=== PATIENT | male | born 1955 | race Caucasian/White ===

== ENCOUNTER 2018-10-11 01:24 | Inpatient (IN) | payer BC ==
[~2018-10-11] VITALS: Ht 167.6 cm; Wt 63.6 kg
[~2018-10-11 01:24] MED LIST: ACET325 PO; AMOCLA500 PO; ASPI81CH; Augmentin 875-1 EACH PO; CALCIUM + D3 E1 EACH PO; CLOP75 PO; CRANBERRY250 MG PO; DIOVAN PO; FURO20 PO; HYDACE5 PO; LEVSOD125 PO; LISI5 PO; METO25ER; METO25ER PO; NAPR550 PO; OLME20; OXYC10TA19 PO; POTCHL10ER PO; POTCHL20ER; SIMV40 PO; THYROXINE PO; VENL75ER; VENL75ER PO; WARF4 PO
[2018-10-11] MEDS ORDERED: METO25ER PO (02:07)
[2018-10-11] MEDS ORDERED: LISI5 PO (02:07)
[2018-10-11] MEDS ORDERED: LISI5 (02:07)
[2018-10-11 02:19] LABS: BASOPHILS ABSOLUTE AUTO 0.02 K/mm3 (0.00-0.23); BASOPHILS PERCENT AUTO 0 % (0-2); EOSINOPHILS ABSOLUTE AUTO 0.06 K/mm3 (0.00-0.68); EOSINOPHILS PERCENT AUTO 1 % (0-6); Hematocrit 41.7 % (37.0-53.0); Hemoglobin 13.6 g/dL (13.5-17.5); IMMATURE GRAN ABSOLUTE AUTO 0.03 K/mm3 (0.00-0.10); IMMATURE GRAN PERCENT AUTO 0 % (0-1); LYMPHOCYTES ABSOLUTE AUTO 1.11 K/mm3 (0.84-5.20); LYMPHOCYTES PERCENT AUTO 14 % (21-46); MONOCYTES ABSOLUTE AUTO 0.93 K/mm3 (0.16-1.47); MONOCYTES PERCENT AUTO 12 % (4-13); Mean Corpuscular HGB 31.8 pg (26.0-34.0); Mean Corpuscular HGB Conc 32.6 g/dL (31.5-36.5); Mean Corpuscular Volume 97 fL (80-100); Mean Platelet Volume 11.2 fL (9.1-12.4); NEUTROPHILS ABSOLUTE AUTO 5.86 K/mm3 (1.96-9.15); NEUTROPHILS PERCENT AUTO 73 % (41-73); Platelet Count 169 K/mm3 (150-400); RDW Coefficient Variation 13.4 % (11.7-14.2); RDW Standard Deviation 48.2 fL (35.1-46.3); Red Blood Cell Count 4.28 M/mm3 (4.30-5.90); White Blood Cell Count 8.01 K/mm3 (4.00-11.30)
[2018-10-11 02:37] LABS: Alanine Aminotransfer (ALT/SGP 20 U/L (12-78); Albumin, Blood 3.4 g/dL (3.4-5.0); Albumin/Globulin Ratio 0.9 (0.8-1.8); Alk Phos 74 U/L (50-136); Anion Gap 9 mmol/L (6-16); Aspartate Aminotrans (AST/SGOT 16 U/L (12-37); Bilirubin, Total 0.5 mg/dL (0.1-1.0); Blood Urea Nitrogen 12 mg/dL (8-24); Bun/Creatinine Ratio 19.3 (12.0-20.0); CO2, Blood 24 mmol/L (21-32); Calcium, Blood 7.2 mg/dL (8.5-10.1); Chloride, Blood 106 mmol/L (98-108); Creatinine, Blood 0.62 mg/dL (0.60-1.20); Globulin, Blood 3.6 g/dL (2.2-4.0); Glomerular Filtration Rate >60 (60-); Glucose, Blood 90 mg/dL (70-99); Potassium, Blood 3.5 mmol/L (3.5-5.5); Sodium, Blood 139 mmol/L (136-145); Troponin I <0.015 ng/mL (0.000-0.040)
[2018-10-11 04:29] LABS: Influenza A Positive (NEGATIVE); Influenza B Negative (NEGATIVE)
[2018-10-11] MEDS ORDERED: LEVSOD100 PO (14:30)
--- NOTE | 2018-10-11 19:22 | NUR ---
Shift Summary Pt admitted to the PCU at approx 1415 from ED. Hypertensive at that time which was resolved with meds per emar. VSS now. Pt was also febrile which was reduced with tylenol. Pt repostions self. Calls appropriately. Denies any pain. See shift assessment for detailed assessment. Consults called shortly after pt arrived. Oncology and pulminology have not seen pt at this time. Pt denies any SOB currently at rest. On RA. Discussed w/Dr. Koo possibly needing to draw blood cultures, but she was not concerned about sepsis at this time. Pt has not experienced hemoptysis since arriving to PCU. Pt currently resting in bed with call light within reach. Denies any further questions, complaints or requests at this time. Report given to aliyah REEVES.
--- NOTE | 2018-10-11 22:46 | NUR ---
ASSUMED CARE OF PATIENT AT APPROXIMATELY 1915 FROM KRYSTIN Sherman RN. PATIENT ALERT AND ORIENTED X4. PATIENT REPORTS HE FEELS BETTER COMPARED TO WHEN HE WAS ADMITTED. WEAKNESS NOTED IN LEGS. SBA TO BATHROOM; PATIENT HAS BEEN SLEEPING MOST OF THE TIME SINCE SHIFT CHANGE. PATIENT DENIES PAIN, NUMBNESS, TINGLING, DIZZINESS, LIGHTHEADENESS AND NAUSEA. NSR ON TELE; OXYGEN SATURATION ABOVE 90% ON ROOM AIR. PATIENT WAS HYPERTENSIVE UPON TRANSFER TO PCU; BP STABLE AT SHIFT CHANGE. PIV S/L. PATIENT CURRENTLY SLEEPING IN BED; CALL LIGHT IN REACH; BED IN LOWEST POSISTIN; BED ALARM ON; WILL CONTINUE TO MONITOR AND ASSESS UNTIL END OF SHIFT.
[2018-10-11 23:48] LABS: Adenovirus Not Detected (NOT DETECT); Bordetella pertussis Not Detected (NOT DETECT); Chlamydophila pneumoniae Not Detected (NOT DETECT); Coronavirus 229E Not Detected (NOT DETECT); Coronavirus HKU1 Not Detected (NOT DETECT); Coronavirus NL63 Not Detected (NOT DETECT); Coronavirus OC43 Not Detected (NOT DETECT); Human Metapneumovirus Not Detected (NOT DETECT); Human Rhinovirus/Enterovirus Not Detected (NOT DETECT); Influenza A/H1 Not Detected (NOT DETECT); Influenza A/H3 Not Detected (NOT DETECT); Influenza B Not Detected (NOT DETECT); Mycoplasma pneumoniae Not Detected (NOT DETECT); Parainfluenza Virus 1 Not Detected (NOT DETECT); Parainfluenza Virus 2 Not Detected (NOT DETECT); Parainfluenza Virus 3 Not Detected (NOT DETECT); Parainfluenza Virus 4 Not Detected (NOT DETECT); Respiratory Syncytial Virus Not Detected (NOT DETECT)
[2018-10-12 01:14] LABS: Influenza A Not Detected (NOT DETECT); Influenza A/2009-H1 Detected (NOT DETECT)
[2018-10-12 04:14] LABS: Hematocrit 41.3 % (37.0-53.0); Hemoglobin 13.7 g/dL (13.5-17.5); Mean Corpuscular HGB 31.2 pg (26.0-34.0); Mean Corpuscular HGB Conc 33.2 g/dL (31.5-36.5); Platelet Count 172 K/mm3 (150-400); RDW Coefficient Variation 13.2 % (11.7-14.2); RDW Standard Deviation 45.9 fL (35.1-46.3); Red Blood Cell Count 4.39 M/mm3 (4.30-5.90); White Blood Cell Count 4.75 K/mm3 (4.00-11.30)
[2018-10-12 04:16] LABS: Mean Corpuscular Volume 94 fL (80-100)
[2018-10-12 04:51] LABS: Alanine Aminotransfer (ALT/SGP 16 U/L (12-78); Albumin, Blood 2.9 g/dL (3.4-5.0); Albumin/Globulin Ratio 0.8 (0.8-1.8); Alk Phos 64 U/L (50-136); Anion Gap 8 mmol/L (6-16); Aspartate Aminotrans (AST/SGOT 12 U/L (12-37); Bilirubin, Total 0.7 mg/dL (0.1-1.0); Blood Urea Nitrogen 9 mg/dL (8-24); Bun/Creatinine Ratio 18.5 (12.0-20.0); CO2, Blood 27 mmol/L (21-32); Calcium, Blood 7.1 mg/dL (8.5-10.1); Chloride, Blood 104 mmol/L (98-108); Creatinine, Blood 0.49 mg/dL (0.60-1.20); Globulin, Blood 3.6 g/dL (2.2-4.0); Glomerular Filtration Rate >60 (60-); Glucose, Blood 99 mg/dL (70-99); Potassium, Blood 3.4 mmol/L (3.5-5.5); Sodium, Blood 139 mmol/L (136-145); Total Protein, Blood 6.5 g/dL (6.4-8.2)
--- NOTE | 2018-10-12 06:16 | NUR ---
NO ACUTE CHANGES TO REPORT. PATIENT SLEPT ABOUT NINE HOURS LAST NIGHT. VSS. WILL CONTINUE TO MONITOR AND ASSESS UNTIL END OF SHIFT.
--- NOTE | 2018-10-12 14:55 | NUR ---
PERMISSION TO PROVIDE CARE PERMISSION WAS GIVEN TO ME BY PATIENT TO PROVIDE CARE ON 10/13/18
--- NOTE | 2018-10-12 19:47 | NUR ---
SUMM- PT A/O. LUNGS COARSE SCATTERED. STRONG PRODUCTIVE COUGH- RUST SPUTUM, CLEAR THIS EVENING. TELE SR 70'S. BP ELEVATED THIS AM AND CAME DOWN AFTER PO MEDS. AGAIN ELEVATED 1700, MEDICATED WITH IV HYDRALAZINE AND CAME DOWN 140/90'S. NOTIFIED DR DE LA CRUZ OF BP ELEVATION. INCREASESD AM BP MED. PRN HYDRALAZINE AVAILABLE TONIGHT SHOULD BP BECOME ELEVATED AGAIN. PT STATES HE IS FEELING BETTER. HAS BEEN AMBULATING AROUND IN THE ROOM. PLAN FOR BX SAT OR . PT AND RN AWARE OF NPO AFTER MN ORDER. GAVE REPORT TO NOC RN.
[2018-10-13 04:29] LABS: International Normalized Ratio 0.97
--- NOTE | 2018-10-13 06:16 | NUR ---
NO ACUTE CHANGES TO REPORT. PATIENT SLEPT ABOUT EIGHT TO NINE HOURS. VSS. WILL CONTINUE TO MONITOR AND ASSESS UNTIL END OF SHIFT.
--- NOTE | 2018-10-13 10:03 | NUR ---
Pt was laying in bed and open to PC visit. Pt verbalizes his health status. Pt has support from spouse and some lay people from his orthodoxy provided sacrament this morning. Pt is active in his conrado and attends the [facility]. Theological discussion follow in which pt engages well. Pt expresses his beliefs concerning his illness and states he is ready if it's time for him to go. Verbal prayer was offered on the pt's behalf. Pt voiced gratitude for the interventions. I will remain available.
--- NOTE | 2018-10-13 10:21 | NUR ---
Call from imaging to confirm time of CT guided biopsy-time is set tentatively for 11 am.
--- NOTE | 2018-10-13 12:17 | NUR ---
Call to Pharmacy regarding lovenox order scheduled to start tomorrow at 2 pm; also have written order post lung biopsy for blood thinners to be held for 48 hours starting today. Spoke with pharmacist Yudi at this time.
--- NOTE | 2018-10-13 12:52 | NUR ---
INTERLOCKING INSTALLER NOTE TODAY I HAD THE PLEASURE OF WORKING WITH MR. FORREST. THIS MORNING WE DISCUSSED HIS DIAGNOSIS AND BEGAN WITH TAKING VITALS. THE PATIENT NOTED THAT "IT IS WHAT IT IS" IN REGARD TO HIS DIAGNOSIS. HIS BLOOD PRESSURE WAS ELEVATED WAS HIS HR AND TEMPERATURE. THE PATIENT HAD BEEN NPO SINCE MIDNIGHT LAST NIGHT IN PREPERATION FOR A BIOPSY PROCEDURE. A RESULT HE WAS ONLY GIVEN HIS THYROID MEDICATION, ZESTRIL, METOPROLOL AND TAMIFLU. FOLLOWING MED PASS THE PATIENT WAS OFFERED A WARM RAG TO WASH, BY HIS RN, ROMMEL. HE WASHED HIMSELF WITH SOME HELP FROM ME AND WAS GIVEN A FRESH GOWN WELL BRUSHING HIS TEETH. FOLLOWING THIS I COMPLETED HIS ASSESSMENT WHICH WAS REVIEWED BY ROMMEL REEVES. AT 1100 THE PATIENT WAS TRANSPORTED TO IMAGING FOR THE CT GUIDED BIOPSY PROCEDURE. I WAS GIVEN APPROVAL TO ATTEND. THE PATIENT TOLERATED THE PROCEDURE WELL FROM WHAT I SAW IN THE COCKPIT. HE STAYED CALM AND STILL. UPON RETURNING TO THE PATIENTS ROOM HE WAS GIVEN LUNCH AND ORDERS WERE REVIEWED TO COMPLETE VITALS EVERY 15 MIN FOR 4 TIMES AND EVERY 30 MIN FOR 2 TIMES. AT 1245 I LET THE PATIENT RELAX AND LET HIM KNOW I WOULD BE BACK IN 30 MIN TO COMPLETE ANOTHER ROUND OF VITALS. CIELO REEVES HAS BEEN NOTIFIED REGARDING THE LAST SET, DUE AT 1345 FOR WHICH I WILL NOT BE HERE FOR. \\
[2018-10-13] MEDS ORDERED: OSEL75CA PO (17:03)
[2018-10-16 10:09] LABS: ANTI-THYROGLOBULIN ANTIBODIES <1.0 IU/mL (.); THYROGLOBULIN (ICMA) 972.5 ng/mL (.)
== END 2018-10-13 18:16 | disposition home or self-care (01) | DRG 194 ==
LOC: ER 01:24 → PCU 05:33 → EOR 05:33 → ERHOLD 05:34 → PCU 14:06
PROVIDERS: Emergency Medicine; Internal Medicine Hematology & Oncology; Internal Medicine Pulmonary Disease; ADMIT Internal Medicine
PROC: 0BBJ3ZX Excision of Left Lower Lung Lobe, Percutaneous Approach, Diagnostic (ICD-10-PCS; principal; 2018-10-13)
DX: J10.00 Influenza due to other identified influenza virus with unspecified type of pneumonia (principal); C78.00 Secondary malignant neoplasm of unspecified lung; Z87.891 Personal history of nicotine dependence; E89.0 Postprocedural hypothyroidism; I25.10 Atherosclerotic heart disease of native coronary artery without angina pectoris; Z85.850 Personal history of malignant neoplasm of thyroid; Z90.49 Acquired absence of other specified parts of digestive tract; I10 Essential (primary) hypertension; E87.6 Hypokalemia
CPT/HCPCS: 32405; 36415; 71046; 71260; 74176; 77012; 80053; 84432; 84443; 84484; 85025; 85027; 85610; 86800; 86850; 86900; 86901; 87070; 87205; 87486; 87581; 87633; 87798; 87804; 88305; 88342; 93005; 93010; 96361; 96365; 96367; 99285-25; J0360; J0692; J3370; J7030; Q9967

== ENCOUNTER 2019-01-28 00:11 | Day surgery (SDC) | payer BC ==
[~2019-01-28 00:11] MED LIST changes: +LEVSOD100 PO; +LISI5; +OSEL75CA PO
--- NOTE | 2019-01-28 10:12 | NUR ---
WAITED 15 MINUTES AFTER INJECTION WITH NO PROBLEMS.
[2019-01-28] MEDS ORDERED: NAPR220 PO (10:19)
[2019-01-28] MEDS ORDERED: LO-DOSE ASPIRIN81 MG PO (10:19)
[2019-01-28] MEDS ORDERED: LEVSOD150 PO (10:20)
[2019-01-28] MEDS ORDERED: ESCI10 PO (10:20)
[2019-01-28] MEDS ORDERED: METO25ER PO (10:21)
== END 2019-01-28 09:42 | disposition home or self-care (01) ==
LOC: ATC 00:11
DX: C73 Malignant neoplasm of thyroid gland (principal); C34.31 Malignant neoplasm of lower lobe, right bronchus or lung; C79.51 Secondary malignant neoplasm of bone; C77.1 Secondary and unspecified malignant neoplasm of intrathoracic lymph nodes; E89.0 Postprocedural hypothyroidism; D64.81 Anemia due to antineoplastic chemotherapy; I11.0 Hypertensive heart disease with heart failure; I50.9 Heart failure, unspecified; F41.9 Anxiety disorder, unspecified; F32.9 Major depressive disorder, single episode, unspecified; Z79.899 Other long term (current) drug therapy; Z79.82 Long term (current) use of aspirin; Z87.891 Personal history of nicotine dependence
CPT/HCPCS: 96372; J3240

== ENCOUNTER 2019-01-29 00:19 | Day surgery (SDC) | payer BC ==
[~2019-01-29 00:19] MED LIST changes: +ESCI10 PO; +LEVSOD150 PO; +LO-DOSE ASPIRIN81 MG PO; +NAPR220 PO
== END 2019-01-29 09:51 | disposition home or self-care (01) ==
LOC: ATC 00:19
DX: C73 Malignant neoplasm of thyroid gland (principal); E89.0 Postprocedural hypothyroidism; I10 Essential (primary) hypertension; F41.9 Anxiety disorder, unspecified; F32.9 Major depressive disorder, single episode, unspecified; Z79.899 Other long term (current) drug therapy; Z79.82 Long term (current) use of aspirin; Z87.891 Personal history of nicotine dependence
CPT/HCPCS: 96372; J3240

== ENCOUNTER 2019-02-03 00:26 | Day surgery (SDC) | payer BC | END 2019-02-03 09:45 | disposition home or self-care (01) | LOC: ATC 00:26 | DX: C73 Malignant neoplasm of thyroid gland (principal); E89.0 Postprocedural hypothyroidism; Z87.891 Personal history of nicotine dependence; Z79.899 Other long term (current) drug therapy; Z79.82 Long term (current) use of aspirin | CPT/HCPCS: 96372; J3240 ==

== ENCOUNTER 2019-02-04 00:02 | Day surgery (SDC) | payer BC | END 2019-02-04 09:49 | disposition home or self-care (01) | LOC: ATC 00:02 | DX: C73 Malignant neoplasm of thyroid gland (principal); E89.0 Postprocedural hypothyroidism; I10 Essential (primary) hypertension; F41.9 Anxiety disorder, unspecified; F32.9 Major depressive disorder, single episode, unspecified; Z79.899 Other long term (current) drug therapy; Z79.82 Long term (current) use of aspirin; Z87.891 Personal history of nicotine dependence | CPT/HCPCS: 96372; J3240 ==

== ENCOUNTER 2023-01-07 08:25 | Day surgery (SDC) | payer OTHER, BC ==
[~2023-01-07] VITALS: Ht 167.6 cm; Wt 60.8 kg
[~2023-01-07 08:25] MED LIST changes: +AZOR 10-40 MG1 EACH; +EUTHYROX125 MCG PO; +HYDCHL25 PO
[2023-01-07] MEDS ORDERED: MULTI-VITAMIN1 EAC2 (08:47)
[2023-01-07] MEDS ORDERED: B-12 COMPL1000 MCG/2 (08:49)
[2023-01-07] MEDS ORDERED: VITAMIN D5000 UNIT (08:49)
--- NOTE | 2023-01-07 11:18 | NUR ---
01/07/23 1118 LACEY FRANCO #1 COAG 25 (PER LALA JENNINGS IN MY CHART)
== END 2023-01-07 11:00 | disposition home or self-care (01) ==
LOC: ORSCSDS 08:25
PROVIDERS: Internal Medicine Gastroenterology
PROC: 0DBP8ZX Excision of Rectum, Via Natural or Artificial Opening Endoscopic, Diagnostic (ICD-10-PCS; principal; 2023-01-07 09:45)
PROC: 0DBM8ZX Excision of Descending Colon, Via Natural or Artificial Opening Endoscopic, Diagnostic (ICD-10-PCS; principal; 2023-01-07 09:45)
DX: K62.5 Hemorrhage of anus and rectum (principal); Z86.010 Personal history of colon polyps; D12.4 Benign neoplasm of descending colon; K62.7 Radiation proctitis; K62.6 Ulcer of anus and rectum; K57.30 Diverticulosis of large intestine without perforation or abscess without bleeding; Z79.899 Other long term (current) drug therapy
CPT/HCPCS: 88305; J2704; J7120

== ENCOUNTER → 2024-10-19 | Outpatient (CLI) | payer OTHER, BC ==
[~2024-10-19] MED LIST changes: +B-12 COMPL1000 MCG/2; +MULTI-VITAMIN1 EAC2; +VITAMIN D5000 UNIT
== END ==
LOC: LAB 15:26 → LAB SHORT 15:26
DX: C44.41 Basal cell carcinoma of skin of scalp and neck (principal)
CPT/HCPCS: 88305

== ENCOUNTER 2024-11-02 02:32 | Inpatient (IN) | payer OTHER, BC ==
[~2024-11-02] VITALS: Ht 165.1 cm; Wt 63.3 kg
[~2024-11-02 02:32] MED LIST changes: +ASPIR 8181 M1 PO; -B-12 COMPL1000 MCG/2; +B-12500 MC2; -LO-DOSE ASPIRIN81 MG PO; -MULTI-VITAMIN1 EAC2; +MULTI-VITAMIN1 EAC2 PO; -VITAMIN D5000 UNIT; +VITAMIN D5000 UNIT PO
[2024-11-02 04:06] LABS: Source, Urine Clean Catch
[2024-11-02 04:11] LABS: BASOPHILS ABSOLUTE AUTO 0.03 K/mm3 (0.00-0.23); BASOPHILS PERCENT AUTO 1 % (0-2); EOSINOPHILS ABSOLUTE AUTO 0.22 K/mm3 (0.00-0.68); EOSINOPHILS PERCENT AUTO 3 % (0-6); Hematocrit 45.5 % (37.0-53.0); IMMATURE GRAN ABSOLUTE AUTO 0.02 K/mm3 (0.00-0.10); IMMATURE GRAN PERCENT AUTO 0 % (0-1); LYMPHOCYTES ABSOLUTE AUTO 1.07 K/mm3 (0.84-5.20); LYMPHOCYTES PERCENT AUTO 16 % (21-46); MONOCYTES ABSOLUTE AUTO 0.53 K/mm3 (0.16-1.47); MONOCYTES PERCENT AUTO 8 % (4-13); Mean Corpuscular HGB 31.3 pg (26.0-34.0); Mean Corpuscular Volume 95 fL (80-100); Mean Platelet Volume 10.6 fL (9.1-12.4); NEUTROPHILS ABSOLUTE AUTO 4.64 K/mm3 (1.96-9.15); NEUTROPHILS PERCENT AUTO 71 % (41-73); Platelet Count 216 K/mm3 (150-400); RDW Coefficient Variation 12.8 % (11.7-14.2); RDW Standard Deviation 45.2 fL (35.1-46.3); Red Blood Cell Count 4.79 M/mm3 (4.30-5.90); White Blood Cell Count 6.51 K/mm3 (4.00-11.30)
[2024-11-02 04:12] LABS: Bilirubin, Urine Neg (Neg); Blood, Urine 5+ (Neg); Glucose Qualitative, Urine Neg (Neg); Ketones, Urine Neg (Neg); Leukocyte Esterase, Urine 1+ (Neg); Nitrite, Urine Neg (Neg); Protein, Urine 4+ (Neg); Urobilinogen, Urine NORM (Normal); pH, Urine 6.5 (5.0-8.0)
[2024-11-02 04:26] LABS: Appearance, Urine Turbid (Clear); Color, Urine Red (P-Yellow)
[2024-11-02 04:27] LABS: Bacteria Rare /hpf; International Normalized Ratio 0.96; Prothrombin Time Results 10.3 Sec (9.7-11.5); Red Blood Cells, Urine TNTC /hpf (0-2); Squamous Epithelial Cells Not Seen /hpf (Few)
[2024-11-02 04:30] LABS: Albumin, Blood 3.9 g/dL (3.4-5.0); Bilirubin, Total 0.3 mg/dL (0.1-1.0); Bun/Creatinine Ratio 31.3 (12.0-20.0); Calcium, Blood 9.6 mg/dL (8.5-10.1); Creatinine, Blood 0.54 mg/dL (0.60-1.20); Globulin, Blood 3.9 g/dL (2.2-4.0); Potassium, Blood 4.2 mmol/L (3.5-5.5); Total Protein, Blood 7.8 g/dL (6.4-8.2)
[2024-11-02] MEDS ORDERED: HYDROcodone 5-APAP 325 TAB PO ONE (08:10)
[2024-11-02] MEDS ORDERED: FLU VACC TS2024-25(6MOS UP)/PF 45 MCG/0.5 ML SYRINGE IM PRN (11:20)
[2024-11-02 11:36] LABS: Hematocrit 41.6 % (37.0-53.0); Hemoglobin 13.9 g/dL (13.5-17.5)
[2024-11-02 12:55] VITALS: BP 158/96
[2024-11-02] MEDS ORDERED: OLME20 PO (14:10)
[2024-11-02] MEDS ORDERED: DERMACINRX FOL1 EAC2 PO (14:11)
[2024-11-02] MEDS ORDERED: ATOR40TA PO (14:12)
[2024-11-02 15:58] VITALS: BP 148/90
[2024-11-02] MEDS ORDERED: Ketorolac Tromethamine 15mg Vial IV PRN (16:30)
--- NOTE | 2024-11-02 19:29 | NUR ---
shift summary PATIENT HAS GONE THROUGH 3.5 3000 ML IRRIGATION BAGS SINCE BEING ADMITTED FROM ED. HAVING TO MANUALLY IRRIGATE CLOTS. WITH LEAKING FROM AROUND CATHETER SITE, WITH CLOTS LEAKING OUT WELL. OUTPUT STILL BRIGHT RED IN COLOR. REPORT GIVEN TO ELVIS REEVES, TO RESUME CARE.
[2024-11-02 19:47] VITALS: BP 110/67
[2024-11-02] MEDS ORDERED: Atorvastatin 40 MG Tab PO SCH (20:00)
[2024-11-02] MEDS ORDERED: Metoprolol Succinate 25 MG TABCR PO SCH (20:00)
[2024-11-02 21:30] VITALS: BP 117/67
[2024-11-02] MEDS ORDERED: VENLAFAXINE HCL75 M1 PO (22:14)
[2024-11-02] MEDS ORDERED: AMLODIPINE BESYL5 MG PO (22:17)
[2024-11-03 02:08] VITALS: BP 127/84
--- NOTE | 2024-11-03 04:49 | NUR ---
SUMMARY: PT A/OX4, CALLS APPROPRIATELY TO SPECIFY NEEDS AND IS PLEASANT AND COOPERATIVE W/CARE. HE'S REMAINED IN BED T/O NOCTE AND SLEPT INTERMITTENTLY BUT IS UP W/SBA TO MANAGE 3-WAY MARTINI W/CBI IN PROGRESS. HEMATURIA PERSISTS AND A MODERATE AMT OF BLOOD CLOTS WERE OBSERVED BUT URINE APPEARANCE SEEMS SLIGHTLY IMPROVED. IT'S RANGED FROM YELLOW AND BLOOD TINGED TO BRIGHT RED W/CLOTS AND MORE TURBID APPEARANCE. CBI DRIP RATE WAS TITRATED DOWN W/O ANY MANUAL IRRIGATION REQUIRED BUT URINE OCC.LEAKS AROUND CATHETER SPONTANEOUSLY. ZHANG CARE AND ATTENDS CHANGED PRN. HE C/O OF GAY AND A COUPLE BRIEF EPISODES BLADDER DISCOMFORT W/PRN TORADOL RECEIVED FOR GOOD EFFECT. ABDO AND BLADDER HAVE REMAINED SOFT AND NONDISTENDED T/O NOCTE. NO ACUTE CHANGES, VSS AND AFEBRILE. WCTM AND REPORT TO DAY RN.
[2024-11-03 05:44] LABS: BASOPHILS ABSOLUTE AUTO 0.03 K/mm3 (0.00-0.23); BASOPHILS PERCENT AUTO 0 % (0-2); EOSINOPHILS ABSOLUTE AUTO 0.04 K/mm3 (0.00-0.68); EOSINOPHILS PERCENT AUTO 0 % (0-6); Hematocrit 38.5 % (37.0-53.0); Hemoglobin 12.8 g/dL (13.5-17.5); IMMATURE GRAN ABSOLUTE AUTO 0.04 K/mm3 (0.00-0.10); IMMATURE GRAN PERCENT AUTO 0 % (0-1); LYMPHOCYTES ABSOLUTE AUTO 1.23 K/mm3 (0.84-5.20); LYMPHOCYTES PERCENT AUTO 10 % (21-46); MONOCYTES ABSOLUTE AUTO 1.13 K/mm3 (0.16-1.47); MONOCYTES PERCENT AUTO 10 % (4-13); Mean Corpuscular HGB 31.2 pg (26.0-34.0); Mean Corpuscular HGB Conc 33.2 g/dL (31.5-36.5); Mean Corpuscular Volume 94 fL (80-100); Mean Platelet Volume 10.9 fL (9.1-12.4); NEUTROPHILS ABSOLUTE AUTO 9.47 K/mm3 (1.96-9.15); NEUTROPHILS PERCENT AUTO 79 % (41-73); Platelet Count 201 K/mm3 (150-400); RDW Coefficient Variation 13.1 % (11.7-14.2); RDW Standard Deviation 44.8 fL (35.1-46.3); White Blood Cell Count 11.94 K/mm3 (4.00-11.30)
[2024-11-03 06:14] LABS: Bun/Creatinine Ratio 30.1 (12.0-20.0); Calcium, Blood 8.4 mg/dL (8.5-10.1); Creatinine, Blood 0.47 mg/dL (0.60-1.20); Potassium, Blood 3.5 mmol/L (3.5-5.5)
[2024-11-03 08:12] VITALS: BP 134/82
[2024-11-03] MEDS ORDERED: Folic Acid 1 MG TAB PO SCH (09:00)
[2024-11-03] MEDS ORDERED: Losartan Potassium 50 MG Tab PO SCH (09:00)
[2024-11-03] MEDS ORDERED: Cyanocobalamin 500 MCG Tab PO SCH (09:00)
[2024-11-03] MEDS ORDERED: Multivitamins/Minerals 1 Tab PO SCH (09:00)
[2024-11-03] MEDS ORDERED: Cholecalciferol 1000 Unit Tablet (=25MCG) PO SCH (09:00)
[2024-11-03 09:45] VITALS: BP 124/81
[2024-11-03 14:45] VITALS: BP 126/84
[2024-11-03 15:07] VITALS: BP 135/78
[2024-11-03 15:13] LABS: Hematocrit 39.2 % (37.0-53.0); Hemoglobin 13.4 g/dL (13.5-17.5)
--- NOTE | 2024-11-03 17:57 | NUR ---
SHIFT SUMMARY PT A&OX4, VSS, AMB W/ SBA, TOLERATING PO, VOIDING, AND DENIED PAIN. CONTINUOUS BLADDER IRRIGATION CONTINUES. MANUAL IRRIGATION X1 DUE TO CLOTS, OUPUT REMAINS RED. NO OTHER ACUTE CHANGES. CALL LIGHT WITHIN REACH AND PT ABLE TO MAKE NEEDS KNOWN.
[2024-11-03 20:06] VITALS: BP 139/82
--- NOTE | 2024-11-03 21:47 | NUR ---
PATIENT REPORTS BLADDER PRESSURE AND MANUAL IRRIGATION ERFORMED. MULTIPLE BLOOD CLOTS RELEASED AND PATIENT REPORTS PAIN LESSEN. BREAK RN GAVE IV TORADOL 15 MG FOR PAIN. RESTING LISTENING TO CLASSICAL MUSIC CHANNEL. WCTM.
[2024-11-04 03:18] VITALS: BP 131/82
--- NOTE | 2024-11-04 04:04 | NUR ---
SHIFT SUMMARY PATIENT REPORTED BLADDER PRESSURE/PAIN X ONE AND MANUAL IRRIGATION LOOSENED BLOOD CLOTS AND URINE FLOWED FREELY. IV TORADOL 15 MG GIVEN PER PAIN. AXOX 4 AND SBA TO BR. DENIES CHEST PAIN, SOB, AND N/V. VSS/AFEBRILE. PIV INTACT. MARTINI DRAINING WITH CONTINUOUS BLADDER IRRIGATION WITH PINK/RED URINE. CALL LIGHT IN REACH. BED IN LOWEST POSITION. WILL CONTINUE TO MONITOR UNTIL DAY SHIFT NURSE ASSUMES CARE.
[2024-11-04] MEDS ORDERED: Levothyroxine Sodium 0.125 MG Tab PO SCH (06:00)
[2024-11-04 06:05] LABS: BASOPHILS ABSOLUTE AUTO 0.03 K/mm3 (0.00-0.23); BASOPHILS PERCENT AUTO 0 % (0-2); EOSINOPHILS ABSOLUTE AUTO 0.19 K/mm3 (0.00-0.68); EOSINOPHILS PERCENT AUTO 2 % (0-6); Hematocrit 37.5 % (37.0-53.0); Hemoglobin 12.6 g/dL (13.5-17.5); IMMATURE GRAN ABSOLUTE AUTO 0.04 K/mm3 (0.00-0.10); IMMATURE GRAN PERCENT AUTO 1 % (0-1); LYMPHOCYTES ABSOLUTE AUTO 1.85 K/mm3 (0.84-5.20); LYMPHOCYTES PERCENT AUTO 22 % (21-46); MONOCYTES ABSOLUTE AUTO 1.01 K/mm3 (0.16-1.47); MONOCYTES PERCENT AUTO 12 % (4-13); Mean Corpuscular HGB 31.4 pg (26.0-34.0); Mean Corpuscular HGB Conc 33.6 g/dL (31.5-36.5); Mean Corpuscular Volume 94 fL (80-100); Mean Platelet Volume 10.9 fL (9.1-12.4); NEUTROPHILS ABSOLUTE AUTO 5.32 K/mm3 (1.96-9.15); NEUTROPHILS PERCENT AUTO 63 % (41-73); Platelet Count 199 K/mm3 (150-400); RDW Coefficient Variation 13.1 % (11.7-14.2); RDW Standard Deviation 45.1 fL (35.1-46.3); Red Blood Cell Count 4.01 M/mm3 (4.30-5.90); White Blood Cell Count 8.44 K/mm3 (4.00-11.30)
[2024-11-04 06:42] LABS: Bun/Creatinine Ratio 32.8 (12.0-20.0); Calcium, Blood 8.8 mg/dL (8.5-10.1); Creatinine, Blood 0.46 mg/dL (0.60-1.20); Potassium, Blood 3.7 mmol/L (3.5-5.5)
[2024-11-04 07:19] VITALS: BP 142/88
[2024-11-04] MEDS ORDERED: Venlafaxine HCl 75 MG CapCR PO SCH (09:00)
[2024-11-04] MEDS ORDERED: AmLODIPine Besylate 5 MG Tab PO SCH (09:00)
[2024-11-04 14:02] VITALS: BP 131/80
[2024-11-04 15:57] LABS: Hematocrit 35.2 % (37.0-53.0); Hemoglobin 11.9 g/dL (13.5-17.5)
--- NOTE | 2024-11-04 16:09 | NUR ---
THIS RN CALLED TO REQUEST ALTERNATIVE PAIN MEDICATION.
[2024-11-04] MEDS ORDERED: HYDROcodone 5-APAP 325 TAB PO PRN (17:55)
--- NOTE | 2024-11-04 17:57 | NUR ---
SHIFT SUMMARY PT A&OX4, VSS, AMB W/ SBA, TOLERATING PO, VOIDING, AND PAIN MANAGED PER EMAR. PT C/O PAIN AND PRESSURE T/O SHIFT UP UNTIL APPROX 1500. MANUAL IRRIGATIONS HAD TO BE PERFORMED X4 W/ MANY BLOOD CLOTS. RATE INCREASED. OUTPUT PHP CONSULTANT THAN YESTERDAY AND NO C/O PAIN AND OR PRESSURE AFTER RATE INCREASE. TELE PLACED ON PT PER ORDER. NO OTHER ACUTE CHANGES. CALL LIGHT WITHIN REACH AND PT ABLE TO MAKE NEEDS KNOWN.
[2024-11-04 19:29] VITALS: BP 139/84
[2024-11-05 05:35] VITALS: BP 129/90
--- NOTE | 2024-11-05 05:42 | NUR ---
SHIFT SUMMARY PT WITH CBI RUNNING MOD/FAST- BAGS CHANGED APPROX Q 1HOUR. HAND IRRIGATED MARTINI FOR CLOTS X2, BEFORE 2300. MARTINI DRAINAGE IS LIGHT RED/PINK WITHOUT CLOTS SINCE THEN. MEDICATED FOR PAIN PER EMAR. PT SLEPT INTERMITTENTLY THROUGH THE NIGHT. CALL LIGHT WITHIN REACH, SIDERAILS UP X3.
[2024-11-05 06:05] LABS: BASOPHILS ABSOLUTE AUTO 0.03 K/mm3 (0.00-0.23); BASOPHILS PERCENT AUTO 0 % (0-2); EOSINOPHILS ABSOLUTE AUTO 0.26 K/mm3 (0.00-0.68); EOSINOPHILS PERCENT AUTO 4 % (0-6); Hematocrit 35.2 % (37.0-53.0); Hemoglobin 11.6 g/dL (13.5-17.5); IMMATURE GRAN ABSOLUTE AUTO 0.04 K/mm3 (0.00-0.10); IMMATURE GRAN PERCENT AUTO 1 % (0-1); LYMPHOCYTES ABSOLUTE AUTO 1.52 K/mm3 (0.84-5.20); LYMPHOCYTES PERCENT AUTO 21 % (21-46); MONOCYTES ABSOLUTE AUTO 0.77 K/mm3 (0.16-1.47); MONOCYTES PERCENT AUTO 11 % (4-13); Mean Corpuscular HGB 31.1 pg (26.0-34.0); Mean Corpuscular Volume 94 fL (80-100); Mean Platelet Volume 10.7 fL (9.1-12.4); NEUTROPHILS ABSOLUTE AUTO 4.48 K/mm3 (1.96-9.15); NEUTROPHILS PERCENT AUTO 63 % (41-73); Platelet Count 189 K/mm3 (150-400); RDW Coefficient Variation 12.9 % (11.7-14.2); RDW Standard Deviation 44.5 fL (35.1-46.3); Red Blood Cell Count 3.73 M/mm3 (4.30-5.90)
[2024-11-05 06:38] LABS: Calcium, Blood 8.2 mg/dL (8.5-10.1); Creatinine, Blood 0.45 mg/dL (0.60-1.20); Potassium, Blood 4.2 mmol/L (3.5-5.5)
--- NOTE | 2024-11-05 09:41 | NUR ---
TELE NOTIFIED THIS RN THAT PT HAD 11 BEAT RUN PF VTACH. PT ASYMPTOMATIC. THIS RN NOTIFIED DURING AM ROUND.
[2024-11-05] MEDS ORDERED: Acetaminophen 325 MG TABLET PO PRN (13:25)
[2024-11-05 14:24] VITALS: BP 110/67
[2024-11-05 15:48] VITALS: BP 110/67
--- NOTE | 2024-11-05 16:30 | NUR ---
THIS RN CALLED LILIAN RAMIREZ AND GAVE REPORT TO SID.
--- NOTE | 2024-11-05 17:07 | NUR ---
COBRA TRANSFER PT TRANSFERRED TO [facility] AT 1700. PT A&OX4, VSS, AMB W/ SBA TO [facility], TOLERATING PO, VOIDING, AND DENIED PAIN. MARTINI CONT BLADDER IRRIGATION AND IV REMAINED IN PLACE. REPORT GIVEN TO LILIAN RN, SEE PREVIOUS NOTE. BELONGINGS WERE RETURNED. PT ESCOURTED OUT BY TRANSPORT. FAMILY NOTIFIED.
== END 2024-11-05 17:01 | disposition short-term general hospital (02) | DRG 696 ==
LOC: ER 02:32 → MEDS 12:28
PROVIDERS: Emergency Medicine; Family Medicine; Student in an Organized Health Care Education/Training Program; ADMIT Internal Medicine
DX: R31.0 Gross hematuria (principal); I50.32 Chronic diastolic (congestive) heart failure; C78.00 Secondary malignant neoplasm of unspecified lung; E89.0 Postprocedural hypothyroidism; I10 Essential (primary) hypertension; E78.5 Hyperlipidemia, unspecified; F41.1 Generalized anxiety disorder; I11.0 Hypertensive heart disease with heart failure; I25.10 Atherosclerotic heart disease of native coronary artery without angina pectoris; Z90.79 Acquired absence of other genital organ(s); Z85.46 Personal history of malignant neoplasm of prostate; Z85.850 Personal history of malignant neoplasm of thyroid; Z79.82 Long term (current) use of aspirin; Z79.890 Hormone replacement therapy; Z79.899 Other long term (current) drug therapy; Z90.49 Acquired absence of other specified parts of digestive tract; Z87.891 Personal history of nicotine dependence; Z98.890 Other specified postprocedural states
CPT/HCPCS: 36415; 51700; 51798; 74176; 80048; 80053; 81001; 83735; 85014; 85018; 85025; 85610; 87086; 96374; 99285-25; A9270; G0378; J1885

== ENCOUNTER → 2025-04-27 | Outpatient (CLI) | payer OTHER, BC ==
[~2025-04-27] MED LIST changes: +AMLODIPINE BESYL5 MG PO; +ATOR40TA PO; +DERMACINRX FOL1 EAC2 PO; +OLME20 PO; +VENLAFAXINE HCL75 M1 PO
[2025-04-28 12:42] LABS: Stool Occult Bld Immuno 1 Negative (NEGATIVE)
== END ==
LOC: LAB 07:15 → LAB SHORT 07:15
PROVIDERS: Physician Assistant Medical
DX: R19.5 Other fecal abnormalities (principal)
CPT/HCPCS: 82274

== ENCOUNTER → 2025-05-11 | Outpatient (CLI) | payer OTHER, BC ==
[2025-05-12 12:09] LABS: Stool Occult Bld Immuno 1 Positive (NEGATIVE)
== END ==
LOC: LAB 06:00 → LAB SHORT 06:00
PROVIDERS: Physician Assistant Medical
DX: R19.6 Halitosis (principal)
CPT/HCPCS: 82274